=== PATIENT | female | born 1990 | race Caucasian/White ===

== ENCOUNTER 2017-11-15 04:35 | Emergency (ER) | payer OTHER | END 2017-11-15 05:57 | disposition home or self-care (01) | LOC: FTE 04:35 | DX: S01.81XA Laceration without foreign body of other part of head, initial encounter (principal); Y04.2XXA Assault by strike against or bumped into by another person, initial encounter; Y92.89 Other specified places as the place of occurrence of the external cause | CPT/HCPCS: 99283; Z7502 ==

== ENCOUNTER 2018-11-10 21:00 | Emergency (ER) | payer OTHER ==
[2018-11-10] MEDS: DEXAMETHASONE 10 MG/ML 1 ML INJ IM (23:38)
[2018-11-10] MEDS: KETOROLAC 30 MG INJ IM (23:39)
[2018-11-10] MEDS: METHOCARBAMOL 750 MG TAB PO (23:41)
== END 2018-11-11 00:20 | disposition home or self-care (01) ==
LOC: FTE 11-11 00:20
DX: M54.6 Pain in thoracic spine (principal)
CPT/HCPCS: 72072; 81025; 96372; 99284-25

== ENCOUNTER 2018-12-30 08:35 | Emergency (ER) | payer OTHER ==
[2018-12-30] MEDS: CEFTRIAXONE 1 GM INJ IM (09:44)
[2018-12-30] MEDS: LIDOCAINE 1% (MPF) 5 ML VIAL INJ (09:44)
== END 2018-12-30 10:58 | disposition home or self-care (01) ==
LOC: FTE 08:35
DX: J02.9 Acute pharyngitis, unspecified (principal)
CPT/HCPCS: 96372; 99284-25